=== PATIENT | male | born 1990 | race Two or more races ===

== ENCOUNTER 2022-11-06 22:26 | Emergency (ER) | payer OTHER ==
[~2022-11-06] VITALS: Ht 167.6 cm; Wt 90.7 kg
--- NOTE | 2022-11-06 22:27 | NUR ---
YONI BROWN [facility] FOR MEDICAL CLEARANCE, TAKEN TO CHAIR
[2022-11-06 22:29] VITALS: BP 100/46; PULSE 106; RESP 18; TEMP 97.8; O2SAT 97
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
--- NOTE | 2022-11-06 22:35 | NUR ---
Patient was seen by ER on chair.
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
[2022-11-06 23:10] VITALS: BP 105/86; PULSE 86; RESP 17; TEMP 97.8; O2SAT 99
== END 2022-11-06 22:40 ==
LOC: MED 22:26
DX: Z04.1 Encounter for examination and observation following transport accident (principal); Z02.89 Encounter for other administrative examinations; Z88.0 Allergy status to penicillin
CPT/HCPCS: 99283